=== PATIENT | female | born 2000 | race Hispanic/Latino ===

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

== ENCOUNTER 2021-07-07 14:39 | Emergency (ER) | payer OTHER ==
[~2021-07-07] VITALS: Ht 160 cm; Wt 91.0 kg
[2021-07-07 17:45] VITALS: BP 124/60
== END 2021-07-07 17:45 | disposition home or self-care (01) ==
LOC: ED 14:39
DX: M25.532 Pain in left wrist (principal); X50.0XXA Overexertion from strenuous movement or load, initial encounter; Y93.89 Activity, other specified; Y92.009 Unspecified place in unspecified non-institutional (private) residence as the place of occurrence of the external cause

== ENCOUNTER 2021-10-25 14:34 | Emergency (ER) | payer OTHER ==
[~2021-10-25] VITALS: Ht 160 cm; Wt 90.9 kg
[2021-10-25 15:01] VITALS: BP 128/76
[2021-10-25 15:55] LABS: HEMOGLOBIN 11.1 g/dl (12.0-16.0); IMMATURE GRANULOCYTES 0.3 % (0.0-5.0); MEAN CELL VOLUME 84.7 fL CALC (80.0-100.0); MEAN CORPUSCULAR HGB 26.9 pG CALC (26.0-32.0); MEAN CORPUSCULAR HGB CONC 31.7 g/dL CAL (32.0-36.0); NEUT# 4.3 thou/uL (2.00-7.15); RED BLOOD COUNT 4.13 mill/uL (4.20-5.60); RED CELL DISTRI WIDTH 14.5 % (11.5-15.5)
[2021-10-25 16:07] LABS: ALBUMIN 4.1 g/dL (3.2-5.0); ANION GAP 9 (6-22 (CALC)); BUN 11 mg/dL (7-17); BUN/CREATININE RATIO 15 (12-20 (CALC)); CARBON DIOXIDE 27 mmol/l (22-30); CHLORIDE 106 mmol/l (95-108); CREATININE 0.7 mg/dL (0.5-1.0); GFR > 60 ML/MIN (>=60 (CALC)); GFR FOR AFR.AMER. > 60 ML/MIN (>=60 (CALC)); LIPASE 86 u/l (23-300); POTASSIUM 3.9 mmol/l (3.5-5.1); SGOT/AST 27 u/l (14-36); SODIUM 138 mmol/l (137-146); TOTAL PROTEIN 7.6 g/dL (6.3-8.2)
[2021-10-25 16:16] LABS: ALKALINE PHOSPHATASE 72 u/l (38-126); BILIRUBIN, TOTAL 0.2 mg/dL (0.0-1.4)
[2021-10-25] MEDS ORDERED: IBUPROFEN600 MG PO (17:04)
[2021-10-25 17:26] VITALS: BP 107/62
== END 2021-10-25 17:21 | disposition home or self-care (01) ==
LOC: ED 14:34
DX: M94.0 Chondrocostal junction syndrome [Tietze] (principal)